=== PATIENT | female | born 1990 | race Caucasian/White ===

== ENCOUNTER → 2016-08-28 | Outpatient (REF) ==
--- NOTE | 2016-08-29 03:12 | REP ---
Clinical: Pain. Technique: Internal rotation, external rotation, and Y view. Findings: The patient is status post orthopedic procedure with three plugs identified in the glenoid body. A small osteophyte identified in along the inferior margin of the humeral head. Acromioclavicular joint is intact and normal. Subacromial space is normal. No periarticular calcifications are identified. Impression: Postoperative and degenerative changes as described above. Signed by Austen Avila MD 08/29/2016 03:03 A
== END ==
LOC: M SMT 11:37
PROVIDERS: ATTEND Internal Medicine
DX: Z02.1 Encounter for pre-employment examination (principal)